=== PATIENT | male | born 1985 | race African-American/Black ===

== ENCOUNTER 2017-07-17 18:43 | Emergency (ER) | payer MEDICAID ==
[~2017-07-17] VITALS: Ht 177.8 cm; Wt 88.5 kg
[2017-07-17 18:48] VITALS: BP 125/76
--- NOTE | 2017-07-17 18:52 | NUR ---
Patient ambulated to bed 12.
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
--- NOTE | 2017-07-17 19:03 | NUR ---
Pt report given to Akanksha SOLOMON. Transfer of care at this time.
[2017-07-17] MEDS ORDERED: LIDOCAINE 1% ED 50 ML ONE (19:14)
--- NOTE | 2017-07-17 19:50 | NUR ---
DR CHAVEZ AT BEDSIDE FOR I&D.
--- NOTE | 2017-07-17 20:15 | NUR ---
Ultrasound at bedside.
[2017-07-17] MEDS ORDERED: LIDOCAINE 1% 500 MG/50 ML VIAL INJ ONE (20:30)
[2017-07-17] MEDS ORDERED: oxyCODONE/APAP 5/325 MG 1 TAB TAB PO ONE (20:30)
[2017-07-17] MEDS ORDERED: IBUPROFEN 800 MG TAB PO ONE (20:40)
[2017-07-17] MEDS ORDERED: cefTRIAXone 1,000 MG in LIDOCAINE 1% ED 2.1 ML IM ONE (21:35)
[2017-07-17] MEDS ORDERED: NEOMYCIN/POLYMYXIN/BACITRACIN 0.9 GM/1 PKT TP ONE (22:23)
--- NOTE | 2017-07-17 22:29 | NUR ---
Patient discharged with v/s stable. Written and verbal after care instructions given and explained. Patient alert, oriented and verbalized understanding of instructions. Ambulatory with steady gait. All questions addressed prior to discharge. ID band removed. Patient advised to follow up with PMD. Rx of KEFLEX 500MG, IBUPROFEN 800MG, BACTRIM DS 800MG given. Patient educated on indication of medication including possible reaction and side effects. Opportunity to ask questions provided and answered.
[2017-07-17 22:31] VITALS: BP 133/75
== END 2017-07-17 22:31 | disposition home or self-care (01) ==
LOC: MED 18:43
DX: L03.315 Cellulitis of perineum (principal); J45.909 Unspecified asthma, uncomplicated
CPT/HCPCS: 10060; 76870; 96372; 99284; J0696; J2001; Q0092; 56405

== ENCOUNTER 2017-09-11 17:52 | Emergency (ER) | payer MEDICAID ==
[~2017-09-11] VITALS: Ht 177.8 cm; Wt 87.1 kg
[2017-09-11 18:18] VITALS: BP 119/69
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
--- NOTE | 2017-09-11 21:21 | NUR ---
PT TAKEN TO OVERFLOW.
[2017-09-11 22:10] VITALS: BP 111/68
--- NOTE | 2017-09-11 22:10 | NUR ---
Patient discharged with v/s stable. Written and verbal after care instructions given and explained. Patient alert, oriented and verbalized understanding of instructions. Ambulatory with steady gait. All questions addressed prior to discharge. ID band removed. Patient advised to follow up with PMD. Rx of IBU 800MG, ACETAMINOPHEN 500MG, given. Patient educated on indication of medication including possible reaction and side effects. Opportunity to ask questions provided and answered.
== END 2017-09-11 22:10 | disposition home or self-care (01) ==
LOC: MED 17:52
DX: R07.81 Pleurodynia (principal); J45.909 Unspecified asthma, uncomplicated
CPT/HCPCS: 71101; 99284

== ENCOUNTER 2018-04-08 13:12 | Emergency (ER) | payer MEDICAID ==
[~2018-04-08] VITALS: Ht 177.8 cm; Wt 87.1 kg
--- NOTE | 2018-04-08 13:15 | NUR ---
PT AMBULATES TO BED 6
[2018-04-08 13:18] VITALS: BP 129/73
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
--- NOTE | 2018-04-08 13:57 | NUR ---
DR TOBAR [facility].
[2018-04-08 14:10] VITALS: BP 129/73
--- NOTE | 2018-04-08 14:10 | NUR ---
Patient discharged with v/s stable. Written and verbal after care instructions given and explained. Patient alert, oriented and verbalized understanding of instructions. with steady gait. All questions addressed prior to discharge. ID band removed. Patient advised to follow up with PMD. Rx of MOTRIN given. Patient educated on indication of medication including possible reaction and side effects. Opportunity to ask questions provided and answered.
== END 2018-04-08 14:10 | disposition home or self-care (01) ==
LOC: MED 13:12
DX: S16.1XXA Strain of muscle, fascia and tendon at neck level, initial encounter (principal); M54.9 Dorsalgia, unspecified; J45.909 Unspecified asthma, uncomplicated; V43.52XA Car driver injured in collision with other type car in traffic accident, initial encounter; Y93.89 Activity, other specified; Y99.8 Other external cause status; Y92.410 Unspecified street and highway as the place of occurrence of the external cause
CPT/HCPCS: 99283